=== PATIENT | male | born 1955 | race Caucasian/White ===

== ENCOUNTER 2016-07-17 15:39 | Emergency (ER) | payer SELFPAY ==
[2016-07-17 16:16] VITALS: TEMP 98.8; BMI 22.4
[2016-07-17 16:57] LABS: BLOOD UREA NITROGEN 18 MG/DL (9-20); CALC CORRECTED 9.3 MG/DL (8.4-10.2); CALCIUM 9.1 MG/DL (8.4-10.2); CALCULATED OSMOLALITY 277 MOs/Kg (270-290); CHLORIDE 100 mEq/L (98-107); GLUCOSE 375 MG/DL (70-99); SODIUM LEVEL 135 mEq/L (137-146); TOTAL PROTEIN 7.7 G/DL (6.3-8.2)
[2016-07-17] MEDS ORDERED: MORPHINE 4 MG/ML INJECTION IV ONE ×2 (18:43→20:11)
[2016-07-17] MEDS ORDERED: REGULAR INSULIN 100 UNITS/ML - 3 ML VIAL IV ONE (18:43)
[2016-07-17] MEDS ORDERED: NS 1,000 ML IV ONE (18:43)
[2016-07-17] MEDS ORDERED: ONDANSETRON HCL 4 MG/2 ML VIAL IV ONE (18:43)
--- NOTE | 2016-07-17 19:46 | EDPRACDOC ---
- General Information Chief Complaint: Bleeding (Rectal &/or other) Stated Complaint: RECTAL BLEEDING - RECENT HERNIA SX Time Seen by Provider: 07/17/16 18:38 Information Source: Patient Mode of Arrival:: Car Home Medications: Home Medications Docusate Sodium [Colace] 100 mg PO TID #30 capsule 07/17/16 Hydrocodone/Acetaminophen [Lortab 5-325 mg Tablet] 1 each PO Q4H PRN #15 tablet 07/17/16 MetFORMIN (Immediate Release) [GLUCOPHAGE Immed Release] 500 mg PO BID 07/17/16 Metformin HCl [Metformin HCl ER] 500 mg PO DAILY #30 tab 07/17/16 Naproxen Sodium [Aleve] 440 mg PO QAM 07/17/16 PEG-Electrolytes (Miralax) [Miralax] 17 gm PO DAILY #30 each 07/17/16 Allergies/Adverse Reactions: Allergies Allergy/AdvReac Type Severity Reaction Status Date / Time amoxicillin Allergy Nausea only Verified 07/17/16 16:16 ketorolac [From Toradol] Allergy HIVES Verified 07/17/16 16:17 - History of Present Illness Onset: 2 DAY HPI: PT SAID THAT HE HAD HERNIA SURGERY, THEN TRAVELED ON A [employer] BUS THE NEXT DAY. PT HAS PAIN IN HIS LOWER ABDOMEN SINCE THEN. PT ALSO HAS RECTAL BLEEDING. PT WAS JUST DIAGNOSED WITH DIABETES ON THE DAY OF HIS HERNIA SURGERY. THE PT PLACED ON METFORMIN AND WAS NOT GIVEN A GLUCOMETER. HE HAS NO IDEA WHAT HIS BS HAS BEEN. ED Past Medical History - Patient Medical History Systemic History: Reports: Diabetes Surgical History: Reports: Hernia Surgery - Social Medical History Smoking Status: Never smoker ETOH: None Substance Abuse: None Lives In: Home EDM Review of Systems - Review of Systems ROS Negative Except as Marked: Yes All systems reviewed and were negative except as marked Gastrointestinal: Pain, Other (RECTAL BLEEDING) - Physical Exam Constitutional: Alert (Awake), No apparent distress Oriented to: Time, Person, Place Last recorded Vital Signs: Last Vital Signs Temp 98.8 F 07/17/16 16:09 Pulse 81 07/17/16 19:12 Resp 18 07/17/16 19:12 BP 132/79 07/17/16 19:12 Pulse Ox 98 07/17/16 19:12 Oxygen Pulse Oxygen Saturation 98 O2 Device Room Air Oxygen Flow Rate Fraction of Inspired Oxygen ( FIO2) - HEENT Head: Normal ( normocephalic) Eye Exam: Normal (PERRL, EOMI, Sclera white) Oropharynx: Normal (Pharynx:Moist without exudate,Gums-no swelling) ENT EAC: Normal TMJ: Normal Nose: No Symptoms Reported (septum midline) Neck: Normal (FROM, trachea at midline) - Respiratory/Cardiovascular Respiratory: Normal - CTA (BBS clear to auscultation without adventitious sounds ) Cardiovascular: Tachycardia - GI Auscultation: Normal (NABS) Palpation: Normal (Soft,No rebound or guarding, non distended) Tenderness: Moderate, RLQ, LLQ Mcrae's Sign: Negative - Musculoskeletal Back: Normal (Non-Tender) Extremities: Normal (Normal tone, Pulses 2+ No cyanosis or edema, FROM) - Integumentary Skin: Normal, Warm, Dry Lymphatics: Normal (no adenopathy) - Neurologic Memory Impaired: Normal Motor Function: Normal (Normal tone, Pulses 2+ No cyanosis or edema, FROM) Cranial Nerve: Normal (CN II-X11 intact sensation, strength 5/5) Cerebellar: Normal Mood Description: Normal Thought: Coherent Perception: Normal - Re-evaluation Re-evaluation 1 Re-evaluation Time: 22:01 (LARGE BM) - Results 07/17/16 20:14 07/17/16 16:30 Lab Results: Sodium 135 mEq/L (137-146) L 07/17/16 16:30 Potassium 4.6 mEq/L (3.5-5.1) 07/17/16 16:30 Chloride 100 mEq/L (98-107) 07/17/16 16:30 Carbon Dioxide 23 mMOL/L (22-33) 07/17/16 16:30 Anion Gap 17 mEq/L (8-16) H 07/17/16 16:30 BUN 18 MG/DL (9-20) 07/17/16 16:30 Creatinine 0.70 MG/DL (0.66-1.25) 07/17/16 16:30 Estimated GFR (MDRD) > 60 mL/min (>=60) 07/17/16 16:30 Glucose 375 MG/DL (70-99) H 07/17/16 16:30 Calculated Osmolality 277 MOs/Kg (270-290) 07/17/16 16:30 Calcium 9.1 MG/DL (8.4-10.2) 07/17/16 16:30 Corrected Calcium 9.3 MG/DL (8.4-10.2) 07/17/16 16:30 Total Bilirubin 0.5 MG/DL (0.2-1.3) 07/17/16 16:30 AST 228 IU/L (17-59) H 07/17/16 16:30 ALT 293 IU/L (21-72) H 07/17/16 16:30 Alkaline Phosphatase 102 IU/L (50-160) 07/17/16 16:30 Total Protein 7.7 G/DL (6.3-8.2) 07/17/16 16:30 Albumin 3.8 G/DL (3.5-5.0) 07/17/16 16:30 Lab Results 07/17/16 16:30 Sodium 135 L Potassium 4.6 Chloride 100 Carbon Dioxide 23 Anion Gap 17 H BUN 18 Creatinine 0.70 Estimated GFR (MDRD) > 60 Glucose 375 H Calculated Osmolality 277 Calcium 9.1 Corrected Calcium 9.3 Total Bilirubin 0.5 AST 228 H ALT 293 H Alkaline Phosphatase 102 Total Protein 7.7 Albumin 3.8 - EKG EKG #1 EKG Time: 16:37 -: Yes EKG interpreted by me Rate: bpm: 112 [place]: Normal Rhythm: ST Block: None Hypertrophy: None ST: Normal Decision Time to Discharge: 22:01 - Departure Yes I personally saw and evaluated the patient. Disposition: Home Condition: Fair Final Diagnosis: Status post bilateral hernia repair, Fecal impaction, Constipation, Hyperglycemia Education/Counseling Given To: Patient Education/Counseling Given Regarding: Diagnosis, Treatment, Follow Up Referrals: None,No Provider [Primary Care Provider] - One Week Ankit Fagan MD [Staff Physician] - One Week Kris Gotti MD [Staff Physician] - One Week Prescriptions: Docusate Sodium [Colace] 100 mg PO TID #30 capsule Hydrocodone/Acetaminophen [Lortab 5-325 mg Tablet] 1 each PO Q4H PRN #15 tablet PRN Reason: Pain Metformin HCl [Metformin HCl ER] 500 mg PO DAILY #30 tab PEG-Electrolytes (Miralax) [Miralax] 17 gm PO DAILY #30 each Additional Instructions: INCREASE TOTAL METFORMIN TOTAL DOSE TO 1000 MG IN AM AND 500 MG IN PM.
[2016-07-17 20:33] LABS: AUTOMATED BASOPHIL 0.9 % (0-2); AUTOMATED EOSINOPHIL 0.9 % (0-5); AUTOMATED LYMPH 19.5 % (17-44); AUTOMATED MONOCYTE 10.8 % (3-10); AUTOMATED NEUTROPHIL 67.9 % (45-76)
[2016-07-17 20:46] LABS: PARTIAL THROMB. TIME 32.2 SEC (22-35); PT-INR 1.1
--- NOTE | 2016-07-17 21:05 | DIRPT ---
CLINICAL DATA: 60-year-old male with abdominal pain EXAM: DG ABDOMEN ACUTE W/ 1V CHEST COMPARISON: None. FINDINGS: There is moderate amount of stool throughout the colon. Dense stool noted within the rectum likely representing fecal impaction. No evidence of bowel obstruction. No free air identified. No radiopaque calculus bold foreign object. The osseous structures are intact. The lungs are clear. No pleural effusion or pneumothorax. The cardiac silhouette is within normal limits. IMPRESSION: Constipation with possible fecal impaction within the rectum. No bowel obstruction. Electronically Signed By: Aldo George M.D. On: 07/17/2016 21:03
[2016-07-17] MEDS ORDERED: BUBBLE GUM ENEMA 480 ML ENEMA PR ONE (21:12)
[2016-07-17 21:47] VITALS: BP 118/65; PULSE 76
== END 2016-07-17 22:17 | disposition home or self-care (01) ==
LOC: ED 15:39
DX: K56.41 Fecal impaction (principal); E11.65 Type 2 diabetes mellitus with hyperglycemia
CPT/HCPCS: 36415; 74022; 80053; 82270; 82272; 82962; 85025; 85610; 85730; 96361; 96374; 96375; 96376; 99284; J2270; J2405; J3490